=== PATIENT | male | born 1985 | race African-American/Black ===

== ENCOUNTER 2017-01-21 07:57 | Emergency (ER) | payer MEDICAID ==
[2017-01-21] MEDS ORDERED: Lidocaine 2% Viscous Solution 15 ML Cup PO PRN (08:01)
[2017-01-21] MEDS ORDERED: Benzocaine 20% Topical Spray UD MUCMEM ONE (08:01)
[2017-01-21 08:13] VITALS: BP 200/104
--- NOTE | 2017-01-21 08:15 | EDM.PDOC ---
ED HPI GENERAL MEDICAL PROBLEM - General Chief Complaint: ENT Problem Stated Complaint: JAW/TOOTH PAIN Time Seen by Provider: 01/21/17 08:01 - History of Present Illness INITIAL COMMENTS - FREE TEXT/NARRATIVE: HISTORY AND PHYSICAL: History of present illness: Patient is a 31-year-old male with no stated medical problems who presents with complaints of pain to a tooth on the right upper side. He states he knew he had a cavity there and it was not bothering him until this morning. He also notes some swelling to his face and was concerned and came here. He took one dose of ibuprofen at home and it did not help so he came for treatment. He does not have a local dentist. Review of systems: As per history of present illness and below otherwise all systems reviewed and negative. Past medical history: As per history of present illness and as reviewed below otherwise noncontributory. Surgical history: As per history of present illness and as reviewed below otherwise noncontributory. Social history: No reported history of drug or alcohol abuse. Family history: As per history of present illness and as reviewed below otherwise noncontributory. Physical exam: General: Well-developed mildly overweight male who is nontoxic and has only minimal right maxillary swelling of his face is speaking clearly and easily HEENT: Atraumatic, normocephalic, pupils reactive, negative for conjunctival pallor or scleral icterus, mucous membranes moist, throat clear, neck supple, nontender, trachea midline. There is no cervical adenopathy is appreciated and there were several areas of dental disease noted the most noteworthy is a cavity in the right upper premolar area but there is no bone tenderness or fluctuance Lungs: Clear to auscultation, breath sounds equal bilaterally, chest nontender. Heart: S1S2, regular, negative for clicks, rubs, or JVD. Abdomen: Soft, nondistended, nontender. NABS Genitourinary: Deferred. Rectal: Deferred. Extremities: Atraumatic, full range of motion without defects or deficits Neurovascular unremarkable. Neuro: Awake, alert, oriented. Cranial nerves II through XII unremarkable. Cerebellum unremarkable. Motor and sensory unremarkable throughout. Exam nonfocal. Diagnostics: [] Therapeutics: Dental balls Impression: Dental pain/dental caries Definitive disposition and diagnosis as appropriate pending reevaluation and review of above. - Related Data Allergies Allergy/AdvReac Type Severity Reaction Status Date / Time acetaminophen [From Vicodin] Allergy Rash Verified 01/21/17 08:08 amoxicillin Allergy Hyperactivi Verified 01/21/17 08:08 ty hydrocodone [From Vicodin] Allergy Rash Verified 01/21/17 08:08 Home Meds: Home Meds . [No Known Home Meds] 01/21/17 [History] ED ROS GENERAL - Review of Systems Review Of Systems: ROS reveals no pertinent complaints other than HPI. ED EXAM, GENERAL - Physical Exam Exam: See Below (see dictation) Course - Orders/Labs/Meds Orders: Active Orders 24 hr Category Date Time Status Lidocaine 2% [Xylocaine 2% Viscous] Med 01/21/17 08:01 Active 15 ml PO ASDIRECTED PRN Medication Orders Lidocaine HCl (Xylocaine 2% Viscous) 15 ml PO ASDIRECTED PRN PRN Reason: Dental pain Meds: Medications Generic Name Dose Route Start Last Admin Trade Name Freq PRN Reason Stop Dose Admin Lidocaine HCl 15 ml 01/21/17 08:01 Xylocaine 2% Viscous PO ASDIRECTED PRN Dental pain Discontinued Medications Generic Name Dose Route Start Last Admin Trade Name Freq PRN Reason Stop Dose Admin Benzocaine 2 each 01/21/17 08:01 Hurricaine One 20% MUCMEM 01/21/17 08:02 ONETIME ONE Departure - Departure Time of Disposition: 08:14 Disposition: Home, Self-Care 01 Condition: good Clinical Impression: Dental caries, Toothache Forms: ED Department Discharge Additional Instructions: The following information is given to patients seen in the emergency department who are being discharged to home. This information is to outline your options for follow-up care. We provide all patients seen in our emergency department with a follow-up referral. The need for follow-up, as well as the timing and circumstances, are variable depending upon the specifics of your emergency department visit. If you don't have a primary care physician on staff, we will provide you with a referral. We always advise you to contact your personal physician following an emergency department visit to inform them of the circumstance of the visit and for follow-up with them and/or the need for any referrals to a consulting specialist. The emergency department will also refer you to a specialist when appropriate. This referral assures that you have the opportunity for followup care with a specialist. All of these measure are taken in an effort to provide you with optimal care, which includes your followup. Under all circumstances we always encourage you to contact your private physician who remains a resource for coordinating your care. When calling for followup care, please make the office aware that this follow-up is from your recent emergency room visit. If for any reason you are refused follow-up, please contact the [facility] emergency department at and ask to speak to the emergency department charge nurse. [facility] [address] [address] Use antibiotics as directed and also use dental balls and shown for pain. You can also use [id number] Tylenol/ibuprofen. These call and follow up with local dentist for definitive care and treatment. Return to ER as needed and as discussed - My Orders Last 24 Hours: My Active Orders 01/21/17 08:01 Lidocaine 2% [Xylocaine 2% Viscous] 15 ml PO ASDIRECTED PRN - Assessment/Plan Last 24 Hours: My Active Orders 01/21/17 08:01 Lidocaine 2% [Xylocaine 2% Viscous] 15 ml PO ASDIRECTED PRN
== END 2017-01-21 08:26 | disposition home or self-care (01) ==
LOC: MW.ED 07:57
DX: K02.9 Dental caries, unspecified (principal); Z88.1 Allergy status to other antibiotic agents; Z88.5 Allergy status to narcotic agent; Z88.6 Allergy status to analgesic agent
CPT/HCPCS: 99282; A9270; 99283

== ENCOUNTER 2017-05-30 13:32 | Emergency (ER) | payer SELFPAY ==
--- NOTE | 2017-05-30 14:22 | EDM.PDOC ---
ED HPI GENERAL MEDICAL PROBLEM - General Chief Complaint: ENT Problem Stated Complaint: TOOTH PAIN Time Seen by Provider: 05/30/17 14:16 - History of Present Illness INITIAL COMMENTS - FREE TEXT/NARRATIVE: HISTORY AND PHYSICAL: History of present illness: Patient is a 31-year-old black male presents with a concern of dental pain patient denies fever chills nausea vomiting or other concern Review of systems: As per history of present illness and below otherwise all systems reviewed and negative. Past medical history: As per history of present illness and as reviewed below otherwise noncontributory. Surgical history: As per history of present illness and as reviewed below otherwise noncontributory. Social history: No reported history of drug or alcohol abuse. Family history: As per history of present illness and as reviewed below otherwise noncontributory. Physical exam: HEENT: Atraumatic, normocephalic, pupils reactive, negative for conjunctival pallor or scleral icterus, mucous membranes moist, throat clear, neck supple, nontender, trachea midline. Multiple dental caries noted patient has some swelling in the gingiva the right upper molar region. Lungs: Clear to auscultation, breath sounds equal bilaterally, chest nontender. Heart: S1S2, regular, negative for clicks, rubs, or JVD. Abdomen: Soft, nondistended, nontender. Negative for masses or hepatosplenomegaly. Negative for costovertebral tenderness. Pelvis: Stable nontender. Genitourinary: Deferred. Rectal: Deferred. Extremities: Atraumatic, negative for cords or calf pain. Neurovascular unremarkable. Neuro: Awake, alert, oriented. Cranial nerves II through XII unremarkable. Cerebellum unremarkable. Motor and sensory unremarkable throughout. Exam nonfocal. Diagnostics: None Therapeutics: None Impression: # 1 dentalgia #2 dental caries #3 rule out dental abscess Definitive disposition and diagnosis as appropriate pending reevaluation and review of above. - Related Data Allergies Allergy/AdvReac Type Severity Reaction Status Date / Time acetaminophen [From Vicodin] Allergy Rash Verified 01/21/17 08:08 amoxicillin Allergy Hyperactivi Verified 01/21/17 08:08 ty hydrocodone [From Vicodin] Allergy Rash Verified 01/21/17 08:08 Home Meds: Home Meds . [No Known Home Meds] 01/21/17 [History] Past Medical History - Past Surgical History Musculoskeletal Surgical History: Reports: Other (See Below) Social & Family History - Family History Family Medical History: Noncontributory - Tobacco Use Smoking Status *Q: Current Every Day Smoker Years of Tobacco use: 10 Packs/Tins Daily: 0.5 - Recreational Drug Use Recreational Drug Use: No ED ROS GENERAL - Review of Systems Review Of Systems: ROS reveals no pertinent complaints other than HPI. ED EXAM, GENERAL - Physical Exam Exam: See Below (See dictation) Departure - Departure Time of Disposition: 14:20 Disposition: Home, Self-Care 01 Condition: Good Clinical Impression: Dentalgia, Dental abscess, Dental caries - Discharge Information Forms: ED Department Discharge Additional Instructions: The following information is given to patients seen in the emergency department who are being discharged to home. This information is to outline your options for follow-up care. We provide all patients seen in our emergency department with a follow-up referral. The need for follow-up, as well as the timing and circumstances, are variable depending upon the specifics of your emergency department visit. If you don't have a primary care physician on staff, we will provide you with a referral. We always advise you to contact your personal physician following an emergency department visit to inform them of the circumstance of the visit and for follow-up with them and/or the need for any referrals to a consulting specialist. The emergency department will also refer you to a specialist when appropriate. This referral assures that you have the opportunity for followup care with a specialist. All of these measure are taken in an effort to provide you with optimal care, which includes your followup. Under all circumstances we always encourage you to contact your private physician who remains a resource for coordinating your care. When calling for followup care, please make the office aware that this follow-up is from your recent emergency room visit. If for any reason you are refused follow-up, please contact the [facility] emergency department at and asked to speak to the emergency department charge nurse. Follow-up dentist as discussed penicillin as prescribed Motrin as directed and return as needed as discussed
== END 2017-05-30 15:05 | disposition home or self-care (01) ==
LOC: MW.ED 13:32
CPT/HCPCS: 99282